=== PATIENT | male | born 1995 | race Caucasian/White ===

== ENCOUNTER 2017-03-24 13:02 | Observation (INO) | payer OTHER ==
[~2017-03-24] VITALS: Ht 193 cm; Wt 61.7 kg
[2017-03-24] MEDS ORDERED: D5%-0.45% NACL 1,000 ML IV ONE (13:49)
[2017-03-24] MEDS ORDERED: SODIUM CHLORIDE FLUSH 10ML SYR IVF PRN (14:00)
[2017-03-24] MEDS ORDERED: ONDANSETRON 2MG/ML, 2ML IVPush PRN ×2 (14:00→17:30)
[2017-03-24] MEDS ORDERED: MORPHINE SULFATE 4 MG/ML, 1ML IVPush PRN (14:00)
[2017-03-24 16:03] VITALS: BP 106/60
[2017-03-24] MEDS ORDERED: BUPIVACAINE/PF 0.5% ONE (16:33)
[2017-03-24] MEDS ORDERED: EPINEPHRINE 1 MG/ML, 1ML ONE (16:33)
[2017-03-24] MEDS ORDERED: SUFentanil 50 MCG/ML, 1ML ONE (16:51)
[2017-03-24] MEDS ORDERED: MIDAZOLAM 1 MG/ML, 2ML ONE (16:52)
[2017-03-24] MEDS ORDERED: LIDOCAINE-MPF 2% ,5ML ONE (16:53)
[2017-03-24] MEDS ORDERED: PROPOFOL 10 MG/ML, 20ML ONE (16:53)
[2017-03-24] MEDS ORDERED: ROCURONIUM 10 MG/ML,10ML ONE (16:53)
[2017-03-24] MEDS ORDERED: CEFOTETAN PMX 2GM/50ML 50 ML ONE (16:56)
[2017-03-24] MEDS ORDERED: KETOROLAC 30 MG/1 ML ONE (16:57)
[2017-03-24] MEDS ORDERED: ONDANSETRON 2MG/ML, 2ML ONE ×2 (16:57)
[2017-03-24] MEDS ORDERED: DEXAMETHASONE 4 MG/ML, 1ML ONE ×2 (16:57)
[2017-03-24] MEDS ORDERED: ROCURONIUM 10MG/ML,5ML ONE (17:01)
[2017-03-24] MEDS ORDERED: KETAMINE 10 MG/ML, 20ML ONE (17:24)
[2017-03-24] MEDS ORDERED: NEOSTIGMINE 1 MG/ML, 10ML ONE (17:28)
[2017-03-24] MEDS ORDERED: GLYCOPYRROLATE 0.2MG/1ML, 5ML ONE (17:28)
[2017-03-24] MEDS ORDERED: PROMETHAZINE 25 MG/ML, 1ML IV PRN (17:30)
[2017-03-24] MEDS ORDERED: ACETAMINOPHEN 325 MG TABLET PO PRN (17:30)
[2017-03-24] MEDS ORDERED: FENTANYL PF 100 MCG/2ML IV PRN (17:30)
[2017-03-24] MEDS ORDERED: OXYcodone 5 MG/5 ML ORAL.SOL UDC PO PRN (17:30)
[2017-03-24] MEDS ORDERED: MEPERIDINE/PF 25MG/0.5ML IVPush PRN (17:30)
[2017-03-24] MEDS ORDERED: ALBUTEROL SULFATE 2.5 MG/3 ML NPPB PRN (17:30)
[2017-03-24] MEDS ORDERED: HYDROmorphone 1 MG/ML, 1ML IV PRN (17:30)
[2017-03-24] MEDS ORDERED: OXYcodone 5 MG/5 ML ORAL.SOL UDC ONE (17:47)
[2017-03-24] MEDS ORDERED: morphine SULFATE 10 MG/ML, 1ML IV PRN (19:00)
[2017-03-24] MEDS ORDERED: OXYcodone/APAP 5/325MG TABLET PO PRN (19:00)
[2017-03-24] MEDS ORDERED: ONDANSETRON 2MG/ML, 2ML IV PRN (19:00)
[2017-03-24 19:25] VITALS: BP 115/94
[2017-03-24 20:25] VITALS: BP 108/63
[2017-03-24] MEDS ORDERED: IBUP-11 PO (20:58)
[2017-03-24] MEDS ORDERED: IBUP-1223 PO (21:01)
[2017-03-24] MEDS ORDERED: OXYC-306 PO (21:02)
[2017-03-24 21:25] VITALS: BP 101/66
== END 2017-03-24 21:35 | disposition home or self-care (01) ==
LOC: EDBD 13:02 → ED 14:34 → EDIP 14:43 → INTOOBSV 14:43 → 4NOR 15:30
PROVIDERS: ADMIT Surgery; ATTEND Surgery
DX: K35.80 Unspecified acute appendicitis (principal); K66.8 Other specified disorders of peritoneum
CPT/HCPCS: 44970; 88304; 99285; G0378; J0171; J1100; J1885; J2250; J2405; J2704; J2710; J3490; S0074